=== PATIENT | female | born 1960 | race Caucasian/White ===

== ENCOUNTER → 2018-08-31 | Outpatient (CLI) | payer OTHER | LOC: CAT 11:39 | DX: Z13.6 Encounter for screening for cardiovascular disorders (principal); I25.10 Atherosclerotic heart disease of native coronary artery without angina pectoris; E78.00 Pure hypercholesterolemia, unspecified ==

== ENCOUNTER → 2018-09-13 | Outpatient (CLI) | payer OTHER ==
--- NOTE | 2018-09-13 12:26 | EXE ---
[facility] [employer] [place] [address] STRESS ECHOCARDIOGRAM Name: EDIGILLES L [id number] ������������� Admission: 09/13/18 ������������� Attend Phys: Angel Mccarthy, Discharge: ��� ������������� ��� Date of : 64 Date of Service: 09/13/18 1226 �� Report #: [id number] �������� ��������������������������������������������[id number] THIS REPORT FOR: //name// APPROVED REPORT Study performed: 09/13/2018 08:34:18 Exam: Stress Echocardiogram Indication: Chest pain Patient Location: Out-Patient Stress Nurse: Abigail Cagle RN Room #: Echo lab 2 Status: routine Ht: 5 ft 3 in HR: 67 bpm BP: 128/78 mmHg Rhythm: NSR Medical History Cardiac Risk Factors: FHX of CAD Exercise History: Physically active Procedure The patient underwent an Exercise Stress Test using the John Protocol. Blood pressure, heart rate, and EKG were monitored. An Echocardiogram was performed by radio frequency technician in four stages in quad fashion. At peak stress, four selected images were obtained and placed side by side with resting images for comparison. Stress Test Details Stress Test: Exercise stress testing was performed using a John protocol. HR Resting HR: 67 bpm Max Heart Rate (APMHR): 164 bpm Max HR Achieved: 169 bpm Target HR (85% APMHR): 139 bpm % of APMHR: 103 Recovery HR: 90 bpm HR response to stress: Normal HR response to stress BP Resting BP: 128/78 mmHg Max BP: 184/90 mmHg Recovery BP: 132/80 mmHg BP response to stress: Normal blood pressure response to stress. [facility] [address] [place] [address] STRESS ECHOCARDIOGRAM Name: MEHRDAD DALEYA Ashely [facility] [id number] ������������� Admission: 09/13/18 ������������� Attend Phys: Angel Mccarthy, Discharge: ��� ������������� ��� Date of : 64 Date of Service: 09/13/18 1226 �� Report #: [id number] �������� ��������������������������������������������[id number] ECG Clinical Reason for Termination: Maximal effort Exercise duration: 13 min sec Highest Stage Achieved: Stage 5: 5.0 mph at 18% grade. Exercise capacity: 17.1 METs Pre-Stress Echo The resting Echocardiogram showed normal left ventricular contractility with an estimated Ejection Fraction of about >55%. Post-Stress Echo The stress Echocardiogram showed normal left ventricular contractility with an estimated Ejection Fraction of about 65-70%. Clinical Normal augmentation of myocardial wall segments using a 17 segment model. Conclusion Clinical Response: Non-ischemic Exercise Capacity: Average Stress ECG Response: Non-ischemic Stress Echo Images: Non-ischemic No prior study available for comparison. Other Information Study Quality: Good ��������������������������������������������� <ELECTRONICALLY SIGNED> ���������������������������������������� By: Angel Mccarthy MD, [facility] ��������������������������������������������� 09/13/18 1226 1226 1226 Angel Mccarthy MD, FACC /INF
== END ==
LOC: CV 07:05
DX: R07.9 Chest pain, unspecified (principal); Z82.49 Family history of ischemic heart disease and other diseases of the circulatory system; Z88.1 Allergy status to other antibiotic agents

== ENCOUNTER → 2021-06-27 | Outpatient (CLI) | payer BC | LOC: SJCVCIMAG 13:00 | PROVIDERS: ATTEND Internal Medicine Cardiovascular Disease | DX: I10 Essential (primary) hypertension (principal); R93.1 Abnormal findings on diagnostic imaging of heart and coronary circulation ==